=== PATIENT | male | born 1950 | race Caucasian/White ===

== ENCOUNTER → 2018-05-19 09:24 | Outpatient (CLI) | payer MEDICARE, BC, SELFPAY ==
[2018-05-20 11:34] LABS: HIV-1/2 Ag & Ab Screen Negative (NEGAT)
== END ==
PROVIDERS: PCP Family Medicine; Visit Provider Family Medicine
DX: Z11.4 Encounter for screening for human immunodeficiency virus [HIV] (principal)
CPT/HCPCS: 36415; 87389

== ENCOUNTER 2018-08-27 02:45 | Outpatient (CLI) | payer MEDICARE, BC, SELFPAY ==
--- NOTE | 2018-09-16 08:49 | ZIOP_ITS ---
DATE OF DICTATION: September 15, 2018 STUDY INDICATION: Palpitations. REQUESTING PROVIDER: Varsha Galvan M.D. FINDINGS: The patient was monitored for thirteen days and five hours. The predominant underlying rhythm was sinus rhythm. Average heart rate in sinus rhythm 70 bpm, range 46 to 158 bpm. There was rare ectopy. There were eleven atrial runs, average heart rate 137 bpm, range 99 to 222 bp m. The longest episode lasted fourteen beats with an average heart rate of 135 bpm. There was daytime bradycardia. There was no high-degree heart block. There were no pauses greater t yadav three seconds. There were two patient events; none of these events correlated with arrhythmias. FINAL INTERPRETATION: Minor tachyarrhythmias, asymptomatic.
== END 2018-08-27 03:05 ==
PROVIDERS: PCP Family Medicine; Visit Provider Family Medicine
DX: R00.2 Palpitations (principal); I49.9 Cardiac arrhythmia, unspecified
CPT/HCPCS: 93225

== ENCOUNTER 2019-02-15 11:55 | Outpatient (CLI) | payer MEDICARE, SELFPAY ==
[2019-02-15 12:58] LABS: Anion Gap 11.5 mmol/L (3-11); BUN 21 mg/dL (7-18); CO2 28.5 mmol/L (21.0-32.0); CREATININE 1.12 mg/dL (0.70-1.30); Calcium 9.5 mg/dL (8.5-10.1); Chloride 102 mmol/L (98-107); Glucose 92 mg/dL (70-100); Potassium 4.6 mmol/L (3.5-5.1); Sodium 142 mmol/L (136-145)
[2019-02-16 12:25] LABS: HIV-1/2 Ag & Ab Screen Negative (NEGAT)
== END 2019-02-15 12:15 ==
PROVIDERS: PCP Family Medicine; Visit Provider Family Medicine
DX: I10 Essential (primary) hypertension (principal); Z11.4 Encounter for screening for human immunodeficiency virus [HIV]
CPT/HCPCS: 36415; 80048; 87389

== ENCOUNTER 2019-06-21 11:43 | Outpatient (CLI) | payer MEDICARE, BC, SELFPAY ==
[2019-06-21 13:33] LABS: ALT 25 U/L (16-63); AST 22 U/L (15-37); Albumin 3.9 g/dL (3.4-5.0); Alkaline Phosphatase 99 U/L (46-116); Anion Gap 7.7 mmol/L (3-11); BUN 17 mg/dL (7-18); Bilirubin, Total 0.8 mg/dL (0.2-1.0); CO2 29.3 mmol/L (21.0-32.0); CREATININE 1.02 mg/dL (0.70-1.30); Calcium 9.6 mg/dL (8.5-10.1); Calculated LDL 105 mg/dL; Chloride 105 mmol/L (98-107); Cholesterol 196 mg/dL (50-200); Glucose 72 mg/dL (70-100); HDL Cholesterol 71 mg/dL (40-60); Potassium 4.4 mmol/L (3.5-5.1); Sodium 142 mmol/L (136-145); Total Protein 7.2 g/dL (6.4-8.2); Triglyceride 104 mg/dL (30-150)
[2019-06-22 10:50] LABS: HIV-1/2 Ag & Ab Screen Negative (NEGAT)
== END 2019-06-21 12:03 ==
PROVIDERS: PCP Family Medicine; Visit Provider Family Medicine
DX: I10 Essential (primary) hypertension (principal); Z11.4 Encounter for screening for human immunodeficiency virus [HIV]
CPT/HCPCS: 36415; 80053; 80061; 87389

== ENCOUNTER 2020-03-10 15:17 | Outpatient (CLI) | payer MEDICARE, BC, SELFPAY ==
--- NOTE | 2020-03-10 10:30 | DI.US_ITS ---
EXAM: US THYROID CLINICAL HISTORY: left thyroid nodule/0.65x0.65x0.83 cm in 10/2017,e04.1. TECHNIQUE: Ultrasound thyroid performed using standard protocol. COMPARISON: US US SOFT TISSUE HEAD/NECK from 05/02/2015 FINDINGS: ISTHMUS: 4 mm RIGHT LOBE: Size: 5.4 x 2.0 by 1.9 cm Echogenicity: Normal. Vascularity: Normal. Nodules: 3 millimeter colloid cyst upper pole LEFT LOBE: Size: 4.6 x 1.5 x 2.0 cm Echogenicity: Normal. Vascularity: Normal. Nodules: 10 x 7 x 8 millimeter nodule lower pole left lobe, unchanged in in size and appearance from the previous exam. OTHER FINDINGS: None. IMPRESSION: Nodule at the lower pole of the left lobe is stable in size and appearance since 2014, consistent wit h a benign nodule.. DATA REPOSITORY:
== END 2020-03-10 15:37 ==
PROVIDERS: PCP Family Medicine; Visit Provider Family Medicine
DX: E04.1 Nontoxic single thyroid nodule (principal)
CPT/HCPCS: 76536

== ENCOUNTER 2020-05-22 21:00 | Outpatient (REF) | payer MEDICARE, BC, SELFPAY ==
[2020-05-22 21:36] LABS: ALT 28 U/L (16-63); AST 22 U/L (15-37); Albumin 3.8 g/dL (3.4-5.0); Alkaline Phosphatase 79 U/L (46-116); Anion Gap 6.2 mmol/L (3-11); BUN 19 mg/dL (7-18); Bilirubin, Total 0.5 mg/dL (0.2-1.0); CO2 29.8 mmol/L (21.0-32.0); CREATININE 1.03 mg/dL (0.70-1.30); Calcium 8.9 mg/dL (8.5-10.1); Chloride 105 mmol/L (98-107); Glucose 82 mg/dL (74-106); Potassium 4.4 mmol/L (3.5-5.1); Sodium 141 mmol/L (136-145); Total Protein 6.8 g/dL (6.4-8.2)
[2020-05-24 09:48] LABS: HIV-1/2 Ag & Ab Screen Negative (Negative)
== END 2020-05-22 21:20 ==
LOC: NCHCN 21:00
PROVIDERS: PCP Family Medicine; Visit Provider Family Medicine
DX: I10 Essential (primary) hypertension (principal); E04.1 Nontoxic single thyroid nodule; Z11.4 Encounter for screening for human immunodeficiency virus [HIV]
CPT/HCPCS: 80053; 87389; 84443

== ENCOUNTER 2020-06-01 01:25 | Outpatient (CLI) | payer MEDICARE, BC, SELFPAY ==
--- NOTE | 2020-06-01 09:47 | DI.RAD_ITS ---
EXAM: XR HIP PELVIS ADULT BL CLINICAL HISTORY: bilateral hip pain/no trauma, M25.551, M25.552. TECHNIQUE: 2D digital imaging was performed. COMPARISON: No exams were available for comparison FINDINGS: The hips are well maintained bilaterally. Moderate degenerative changes are seen in the lower lumbar spine. The sacroiliac joints and symphysis pubis are unremarkable. The bones are normally minerali zed and intact. The soft tissues are unremarkable. IMPRESSION: Unrmarkable radiographs of bilat hips. Moderate degenerative changes in the lower lumbar spine. DATA REPOSITORY: RADIATION DOSE DELIVERED:
== END 2020-06-01 01:45 ==
PROVIDERS: PCP Family Medicine; Visit Provider Family Medicine
DX: M25.551 Pain in right hip (principal); M25.552 Pain in left hip
CPT/HCPCS: 73521

== ENCOUNTER 2020-10-10 01:35 | Outpatient (CLI) | payer MEDICARE, BC, SELFPAY ==
--- NOTE | 2020-10-10 09:00 | DI.RAD_ITS ---
EXAM: XR LUMBAR SPINE COMPLETE CLINICAL HISTORY: increasing bilat.hip pain/normal hip xray/no traumA,OA LS SPINE, M47.816. TECHNIQUE: 2D digital imaging was performed. COMPARISON: No exams were available for comparison FINDINGS: There is a mild levoscoliosis. There are multilevel degenerative disc changes. There is asymmetric narrowing of the disc spaces toward the right at L 2 3 and L3-4. There are prominent endplate osteop hytes at these levels. Facet degenerative changes are noted greatest at L4-5. No spondylolysis or s pondylolisthesis is seen. No compression fracture. IMPRESSION: Degenerative changes, greatest at L3-2 3 and L3-4. DATA REPOSITORY: RADIATION DOSE DELIVERED:
== END 2020-10-10 01:55 ==
PROVIDERS: PCP Family Medicine; Visit Provider Family Medicine
DX: M47.816 Spondylosis without myelopathy or radiculopathy, lumbar region (principal)
CPT/HCPCS: 36415; 80053; 72110

== ENCOUNTER 2020-10-10 02:26 | Outpatient (CLI) | payer MEDICARE, BC, SELFPAY ==
[2020-10-10 13:22] LABS: ALT 19 U/L (16-63); AST 17 U/L (15-37); Albumin 3.6 g/dL (3.4-5.0); Alkaline Phosphatase 83 U/L (46-116); Anion Gap 5.8 mmol/L (3-11); BUN 19 mg/dL (7-18); Bilirubin, Total 0.6 mg/dL (0.2-1.0); CO2 30.2 mmol/L (21.0-32.0); Calcium 9.1 mg/dL (8.5-10.1); Chloride 106 mmol/L (98-107); Glucose 95 mg/dL (74-106); Potassium 4.6 mmol/L (3.5-5.1); Sodium 142 mmol/L (136-145); Total Protein 7.1 g/dL (6.4-8.2)
== END 2020-10-10 02:46 ==
PROVIDERS: PCP Family Medicine; Visit Provider Family Medicine
DX: I10 Essential (primary) hypertension (principal)
CPT/HCPCS: 36415; 80053

== ENCOUNTER 2020-10-30 04:17 | Outpatient (CLI) | payer MEDICARE, BC, SELFPAY ==
[2020-10-31 11:27] LABS: HIV-1/2 Ag & Ab Screen Negative (Negative)
== END 2020-10-30 04:37 ==
PROVIDERS: PCP Family Medicine; Visit Provider Family Medicine
DX: Z11.4 Encounter for screening for human immunodeficiency virus [HIV] (principal)
CPT/HCPCS: 36415; 87389

== ENCOUNTER 2021-06-13 01:52 | Outpatient (CLI) | payer MEDICARE, BC, SELFPAY ==
--- NOTE | 2021-06-13 07:15 | DI.US_ITS ---
Exam(s) US THYROID EXAM: US THYROID CLINICAL HISTORY: thyroid nodule fup q 2years, left thyroid nodule, E04.1. TECHNIQUE: Ultrasound thyroid performed using standard protocol. COMPARISON: US US THYROID from 03/10/2020 FINDINGS: ISTHMUS: 2.2 mm RIGHT LOBE: Size: 5.3 cc by 1.9 AP by 2.3 transverse cm Echogenicity: Normal. Vascularity: Normal. Nodules: None. LEFT LOBE: Size: 5 cc by 1.8 AP by 2 transverse cm Echogenicity: Normal. Vascularity: Normal. Nodules: There is again seen a stable left mixed cystic and solid thyroid nodule. It measures 6 mm A P x 7.6 mm transverse by 1.1 cm craniocaudad. There are punctate echogenic foci noted. The findings are consistent with aTI-RADS level 4 nodule. OTHER FINDINGS: None. IMPRESSION: Stable left thyroid nodule. DATA REPOSITORY:
== END 2021-06-13 02:12 ==
PROVIDERS: PCP Family Medicine; Visit Provider Family Medicine
DX: E04.1 Nontoxic single thyroid nodule (principal)
CPT/HCPCS: 76536

== ENCOUNTER 2021-06-13 02:47 | Outpatient (CLI) | payer MEDICARE, BC, SELFPAY ==
[2021-06-13 11:41] LABS: ALT 30 U/L (16-63); AST 14 U/L (15-37); Albumin 3.8 g/dL (3.4-5.0); Alkaline Phosphatase 75 U/L (46-116); Anion Gap 9.6 mmol/L (3-11); BUN 19 mg/dL (7-18); Bilirubin, Total 0.8 mg/dL (0.2-1.0); CO2 27.4 mmol/L (21.0-32.0); CREATININE 1.2 mg/dL (0.70-1.30); Calcium 8.8 mg/dL (8.5-10.1); Chloride 106 mmol/L (98-107); Estimated GFR 59.51 (mL/min/1.73m2); Glucose 84 mg/dL (74-106); Potassium 4.5 mmol/L (3.5-5.1); Sodium 143 mmol/L (136-145); TSH 1.27 uIU/mL (0.36-3.74); Total Protein 6.5 g/dL (6.4-8.2)
[2021-06-14 09:51] LABS: HIV-1/2 Ag & Ab Screen Negative (Negative)
[2021-06-16 16:34] LABS: Testosterone, Total 407 ng/dL (240-950)
== END 2021-06-13 02:48 | disposition home or self-care (01) ==
LOC: LBO 02:47
PROVIDERS: PCP Family Medicine; Visit Provider Family Medicine
DX: E04.1 Nontoxic single thyroid nodule; I10 Essential (primary) hypertension; R53.83 Other fatigue; Z11.4 Encounter for screening for human immunodeficiency virus [HIV]
CPT/HCPCS: 36415; 80053; 84403; 87389; 76536; 84443

== ENCOUNTER 2021-06-27 03:13 | Outpatient (CLI) | payer MEDICARE, BC, SELFPAY ==
[2021-06-27 12:27] LABS: ESR 3 mm/hr (0-20)
[2021-06-27 12:49] LABS: C-Reactive Protein 0.11 mg/dL (0.0-0.3); Uric Acid 5.3 mg/dL (3.5-7.2)
== END 2021-06-27 03:14 | disposition home or self-care (01) ==
LOC: LOS 03:13
PROVIDERS: PCP Family Medicine; Visit Provider Family Medicine
DX: M25.59 Pain in other specified joint (principal)
CPT/HCPCS: 36415; 85652; 84550; 86140

== ENCOUNTER → 2024-02-27 00:24 | Outpatient (CLI) | payer MEDICARE, SELFPAY ==
--- NOTE | 2024-02-27 11:07 | DI.RAD_ITS ---
Exam(s) XR LUMBAR SPINE COMPLETE EXAM: XR LUMBAR SPINE COMPLETE CLINICAL HISTORY: Worsening pain, arthritis, M47.816. TECHNIQUE: 2D digital imaging was performed. Five views. COMPARISON: CR XR LUMBAR SPINE COMPLETE from 10/10/2020 FINDINGS: BONES: No fracture or destructive lesion. Vertebral body heights are maintained. Facet degenerative changes present, greatest L4-5 and L5-S1. DISKS: Multilevel disc space narrowing, eccentric toward right. Prominent endplate osteophytes eccen tric toward the right. Findings roughly stable from prior exam however there is now mild to moderate narrowing of the L5-S1 disc space ALIGNMENT: Degenerative levoscoliosis. SOFT TISSUE: Normal. IMPRESSION: Advanced degenerative disc changes and levoscoliosis. DATA REPOSITORY: RADIATION DOSE DELIVERED:
== END ==
PROVIDERS: PCP Nurse Practitioner Family; Visit Provider Nurse Practitioner Family
DX: M47.816 Spondylosis without myelopathy or radiculopathy, lumbar region (principal)
CPT/HCPCS: 72110

== ENCOUNTER 2025-03-14 00:47 | Outpatient (CLI) | payer MEDICARE, SELFPAY ==
[2025-03-14 13:38] LABS: Hemoglobin A1C 5.2 % (<5.7)
[2025-03-14 13:53] LABS: Anion Gap 8.7 mmol/L (3-11); BUN 19 mg/dL (7-18); CO2 28.3 mmol/L (21.0-32.0); CREATININE 1.1 mg/dL (0.70-1.30); Calcium 8.6 mg/dL (8.5-10.1); Calculated LDL 98 mg/dL (<100); Chloride 104 mmol/L (98-107); Cholesterol 186 mg/dL (<200); Estimated GFR 69.57 (mL/min/1.73m2); Glucose 88 mg/dL (74-106); HDL Cholesterol 82 mg/dL (>or=40); Potassium 4.1 mmol/L (3.5-5.1); Sodium 141 mmol/L (136-145); Triglyceride 31 mg/dL (<150)
[2025-03-14 22:51] LABS: PSA, Screening 0.9 ng/mL (<=6.5)
[2025-03-15 17:35] LABS: Hepatitis C Ab w Rflx HCV PCR Negative (Negative)
[2025-03-15 17:48] LABS: HIV-1/2 Ag & Ab Screen Negative (Negative)
== END 2025-03-14 00:48 | disposition home or self-care (01) ==
LOC: LBO 00:48
PROVIDERS: PCP Nurse Practitioner Family; Visit Provider Nurse Practitioner Family
DX: Z13.1 Encounter for screening for diabetes mellitus (principal); Z11.59 Encounter for screening for other viral diseases; Z11.4 Encounter for screening for human immunodeficiency virus [HIV]; Z13.6 Encounter for screening for cardiovascular disorders; Z12.5 Encounter for screening for malignant neoplasm of prostate
CPT/HCPCS: 36415; 80048; 80061; 84153; 86803; 87389; 83036

== ENCOUNTER 2025-06-20 10:51 | Outpatient (CLI) | payer MEDICARE, SELFPAY ==
--- NOTE | 2025-06-20 10:57 | DI.RAD_ITS ---
Exam(s) XR HIP RT COMPLETE AP PELVIS EXAM: XR HIP RT COMPLETE AP PELVIS CLINICAL HISTORY: M25.551 Pain in RT hip. Worsening pain. TECHNIQUE: 2D digital imaging was performed. Two views COMPARISON: No exams were available for comparison FINDINGS: BONES: No acute fracture is present. No bony destructive lesion is seen. There are severe degenerative changes of the lower lumbar spine. JOINTS: No dislocation present. There is moderate narrowing of the right superior hip joint space. There is mild spurring at the acetabulum. Left hip joint space is maintained. There is left acetabular spurring. The SI joints are unremarkable. SOFT TISSUE: Normal. IMPRESSION: Moderate degenerative changes of the right hip. DATA REPOSITORY: RADIATION DOSE DELIVERED:
== END 2025-06-20 11:11 ==
LOC: DI 10:52
PROVIDERS: PCP Nurse Practitioner Family; Visit Provider Nurse Practitioner Family
DX: M16.11 Unilateral primary osteoarthritis, right hip (principal)
CPT/HCPCS: 73502

== ENCOUNTER → 2025-06-23 13:27 | Outpatient (BNVA) | payer MEDICARE, SELFPAY | PROVIDERS: PCP Nurse Practitioner Family; Referring Provider Nurse Practitioner Family; Visit Provider Physician Assistant | DX: M16.11 Unilateral primary osteoarthritis, right hip (principal) | CPT/HCPCS: 20611; J1010 ==